=== PATIENT | male | born 1990 | race Caucasian/White ===

== ENCOUNTER → 2016-11-14 | Outpatient (CLI) | payer OTHER ==
[~2016-11-14] MED LIST: AMOXICILLIN 25250 MG PO; BACTRIM DS 8001 TAB PO; CONCERTA36 MG PO; NO HOME MEDICATIONS; PREDNISONE20 MG PO; VICODIN 5/5001 UDTAB PO
== END ==
LOC: COL.RAD 13:09
DX: M25.561 Pain in right knee (principal)

== ENCOUNTER 2017-02-02 20:39 | Emergency (ER) | payer OTHER ==
[~2017-02-02] VITALS: Ht 190.5 cm; Wt 127.3 kg
[~2017-02-02 20:39] MED LIST changes: -BACTRIM DS 8001 TAB PO; -CONCERTA36 MG PO
[2017-02-02 20:41] VITALS: BP 143/75; TEMP 98.3
[2017-02-02] MEDS ORDERED: CONCERTA36 MG PO (20:44)
[2017-02-02] MEDS ORDERED: BACTRIM DS 8001 TAB PO (21:37)
[2017-02-02 21:55] VITALS: PULSE 83
== END 2017-02-02 21:57 | disposition home or self-care (01) ==
LOC: COL.ER 20:39
DX: T24.212A Burn of second degree of left thigh, initial encounter (principal); L08.89 Other specified local infections of the skin and subcutaneous tissue; X13.1XXA Other contact with steam and other hot vapors, initial encounter

== ENCOUNTER 2017-07-20 13:42 | Emergency (ER) | payer SELFPAY ==
[~2017-07-20] VITALS: Ht 190.5 cm; Wt 127.3 kg
[~2017-07-20 13:42] MED LIST changes: +BACTRIM DS 8001 TAB PO; +CONCERTA36 MG PO
[2017-07-20 13:43] VITALS: BP 125/63; TEMP 97.9
[2017-07-20] MEDS ORDERED: CELEXA10 MG (13:45)
[2017-07-20 15:16] VITALS: PULSE 64
== END 2017-07-20 15:18 | disposition home or self-care (01) ==
LOC: COL.ER 13:42
DX: S63.501A Unspecified sprain of right wrist, initial encounter (principal); F32.9 Major depressive disorder, single episode, unspecified; F90.9 Attention-deficit hyperactivity disorder, unspecified type; F17.210 Nicotine dependence, cigarettes, uncomplicated

== ENCOUNTER 2018-10-08 10:26 | Emergency (ER) | payer BC ==
[~2018-10-08] VITALS: Ht 190.5 cm; Wt 140.0 kg
[~2018-10-08 10:26] MED LIST changes: +CELEXA10 MG
[2018-10-08 10:33] VITALS: BP 121/78; TEMP 98.5
[2018-10-08] MEDS ORDERED: WELLBUTRIN 75MG75 MG PO (11:12)
[2018-10-08 11:15] LABS: BASO % 0.3 % (0.0-2.0); EOS # 0.3 (0.0-0.7); EOS % 3.3 % (0-4.0); GRAN # 5.9 (1.4-6.5); GRAN % 66.1 % (42.2-75.2); HEMATOCRIT 44.7 % (42.0-52.0); LYMPH # 1.9 (1.2-3.4); LYMPH % 20.9 % (20.0-51.0); MEAN CELL VOLUME 85 fl (80.0-100.0); MEAN CORPUSCULAR HEMOGLOBIN 28 pg (27.0-31.0); MEAN CORPUSCULAR HGB CONC 34 g/dl (33.0-37.0); MEAN PLATELET VOLUME 10.1 fl (7.4-10.4); MONO # 0.8 (0.1-0.6); MONO % 8.8 % (1.7-9.3); PLATELET COUNT 296 K/mm3 (130-400); RED BLOOD COUNT 5.28 M/mm3 (4.20-5.60)
[2018-10-08 11:23] LABS: INR 1.1 (0.8-3.0); PROTHROMBIN TIME 12.1 SECONDS (9.7-12.8)
[2018-10-08 11:25] LABS: PARTIAL THROMBOPLASTIN TIME 37.5 SECONDS (26.0-37.0)
[2018-10-08 11:26] LABS: ALANINE AMINOTRANSFERASE 45 U/L (21-72); ALBUMIN 4.1 gm/dL (3.5-5.0); ALKALINE PHOSPHATASE 67 U/L (50-136); ANION GAP 8 mmol/L (7-16); AST,SGOT 24 U/L (15-37); BILIRUBIN,TOTAL 0.4 mg/dL (0.0-1.0); BLOOD UREA NITROGEN 9 mg/dL (9-20); CALCIUM 9.3 mg/dL (8.4-10.2); CARBON DIOXIDE 25 mmol/L (22-30); CHLORIDE 105 mmol/L (98-107); CREATININE, serum 0.67 mg/dL (0.66-1.25); GLUCOSE 99 mg/dL (74-106); POTASSIUM 3.9 mmol/L (3.4-5.0); SODIUM 138 mmol/L (137-145); TOTAL PROTEIN 7.3 gm/dL (6.4-8.2)
[2018-10-08 11:40] LABS: ERYTHROCYTE SEDIMENTATION RATE 8 mm/hr (0-15)
[2018-10-08 11:42] LABS: TROPONIN-I < 0.012 ng/mL (0.000-0.035)
[2018-10-08 13:25] VITALS: PULSE 60
== END 2018-10-08 13:27 | disposition home or self-care (01) ==
LOC: COL.ER 10:26
PROVIDERS: Family Medicine
DX: R07.89 Other chest pain (principal); F32.9 Major depressive disorder, single episode, unspecified

== ENCOUNTER 2019-04-06 13:40 | Emergency (ER) | payer SELFPAY ==
[~2019-04-06] VITALS: Ht 190.5 cm; Wt 129.5 kg
[~2019-04-06 13:40] MED LIST changes: +WELLBUTRIN 75MG75 MG PO
[2019-04-06 14:14] VITALS: BP 128/68
[2019-04-06 16:10] VITALS: PULSE 67; TEMP 98.2
== END 2019-04-06 16:15 | disposition home or self-care (01) ==
LOC: COL.ER 13:40
DX: K64.5 Perianal venous thrombosis (principal); F32.9 Major depressive disorder, single episode, unspecified

== ENCOUNTER 2019-08-15 09:04 | Emergency (ER) | payer SELFPAY ==
[~2019-08-15] VITALS: Ht 190.5 cm; Wt 131.8 kg
[2019-08-15 09:20] VITALS: BP 117/74; PULSE 76; TEMP 97.1
[2019-08-15] MEDS ORDERED: AMOXICILLIN 8751 TAB PO ×2 (09:54→10:58)
[2019-08-15] MEDS ORDERED: ADDERALL XR30 MG PO (10:15)
== END 2019-08-15 10:20 | disposition home or self-care (01) ==
LOC: COL.ER 09:04
DX: J32.9 Chronic sinusitis, unspecified (principal); Z88.1 Allergy status to other antibiotic agents

== ENCOUNTER 2019-08-22 16:56 | Emergency (ER) | payer OTHER ==
[~2019-08-22] VITALS: Ht 190.5 cm; Wt 125.0 kg
[~2019-08-22 16:56] MED LIST changes: +ADDERALL XR30 MG PO; +AMOXICILLIN 8751 TAB PO
[2019-08-22 17:40] VITALS: BP 126/64; TEMP 98.4
[2019-08-22 19:23] VITALS: PULSE 82
== END 2019-08-22 19:23 | disposition home or self-care (01) ==
LOC: COL.ER 16:56
DX: F45.8 Other somatoform disorders (principal); F90.9 Attention-deficit hyperactivity disorder, unspecified type; F17.210 Nicotine dependence, cigarettes, uncomplicated; Z88.1 Allergy status to other antibiotic agents

== ENCOUNTER 2021-10-31 14:56 | Emergency (ER) | payer BC ==
[~2021-10-31] VITALS: Ht 190.5 cm; Wt 136.4 kg
[2021-10-31 15:13] VITALS: TEMP 97.5
[2021-10-31 15:50] VITALS: BP 124/76; PULSE 71
== END 2021-10-31 15:50 | disposition home or self-care (01) ==
LOC: COL.ER 14:56
DX: S05.02XA Injury of conjunctiva and corneal abrasion without foreign body, left eye, initial encounter (principal); W22.8XXA Striking against or struck by other objects, initial encounter; Y93.89 Activity, other specified

== ENCOUNTER 2022-08-15 23:17 | Emergency (ER) | payer OTHER ==
[~2022-08-15] VITALS: Ht 190.5 cm; Wt 136.4 kg
[2022-08-16 01:29] VITALS: BP 131/82; PULSE 77; TEMP 97.4
== END 2022-08-16 01:35 | disposition home or self-care (01) ==
LOC: COL.ER 23:17
DX: H66.91 Otitis media, unspecified, right ear (principal); H69.91 Unspecified Eustachian tube disorder, right ear; Z88.1 Allergy status to other antibiotic agents; Z28.310 Unvaccinated for COVID-19